=== PATIENT | male | born 1975 | race Caucasian/White ===

== ENCOUNTER 2021-08-03 06:08 | Day surgery (SDC) | payer OTHER ==
[~2021-08-03] VITALS: Ht 167.6 cm; Wt 74.4 kg
[2021-08-03] MEDS ORDERED: fentaNYL citrate 0.05 MG/ML VIAL ONE (07:58)
[2021-08-03] MEDS ORDERED: LIDOCAINE 2% 100 MG/5 ML UJET TP ONE (07:59)
[2021-08-03] MEDS ORDERED: fentaNYL citrate 0.05 MG/ML VIAL IVP ONE (08:45)
== END 2021-08-03 09:15 | disposition home or self-care (01) ==
LOC: MDS 06:08 → MMU 06:12 → MDS 09:15
PROVIDERS: ATTEND Internal Medicine Gastroenterology
DX: Z12.11 Encounter for screening for malignant neoplasm of colon (principal); K63.5 Polyp of colon; K21.9 Gastro-esophageal reflux disease without esophagitis; R10.13 Epigastric pain; Z88.0 Allergy status to penicillin; Z79.899 Other long term (current) drug therapy
CPT/HCPCS: 45385; J3010